=== PATIENT | male | born 1970 | race Caucasian/White ===

== ENCOUNTER 2022-06-12 07:40 | Emergency (ER) | payer OTHER, SELFPAY ==
[2022-06-12] MEDS ORDERED: Sodium Bicarb 50 MEQ/50 ML Abboject 8.4% SYRINGE ONE (07:41)
[2022-06-12] MEDS ORDERED: Calcium Chloride 1 GM/10 ML Abboject SYRINGE ONE (07:41)
[2022-06-12] MEDS ORDERED: EPINEPHrine 1 MG/10 ML Abboject SYRINGE ONE (07:41)
== END 2022-06-12 08:05 | disposition expired ==
LOC: ERS 07:40 → EDBD 07:40 → ERS 08:05
DX: I46.9 Cardiac arrest, cause unspecified (principal); S81.812A Laceration without foreign body, left lower leg, initial encounter; S71.112A Laceration without foreign body, left thigh, initial encounter; V89.2XXA Person injured in unspecified motor-vehicle accident, traffic, initial encounter; Y92.410 Unspecified street and highway as the place of occurrence of the external cause
CPT/HCPCS: 31500; 32551; 36430; 71045; 86850; 86900; 86901; G0390; J0171; P9016